=== PATIENT | male | born 1990 | race Caucasian/White ===

== ENCOUNTER 2017-12-23 12:59 | Inpatient (IN) | payer OTHER ==
[~2017-12-23] VITALS: Ht 185.4 cm; Wt 84.0 kg
--- NOTE | ~2017-12-23 | EKG ---
[place], [place] ELECTROCARDIOGRAM REPORT NAME: SHANELL TURNER III UNIT #: [id number] ROOM: 416 DOCTOR: GAYATRI DRAFT REPORT BIRTHDATE: [birth year] [facility] Test Date: 2017-12-23 Test Time: 14:19:10 Pat Name: SHANELL TURNER Department: Room: 416 Gender: M Blind Hanger: Vandana Harding : 1990 Requested By: ANDREW BENÍTEZ Order Number: [id number] Reading MD: Andres Roach MD Measurements Intervals [place] Rate: 98 P: 77 [place]: 127 QRS: 79 QRSD: 101 T: -14 QT: 339 QTc: 433 Interpretive Statements Sinus arrhythmia Borderline T abnormalities, inferior leads No previous ECG available for comparison Electronically Signed On 12-26-2017 9:33:50 PDT by Andres Roach MD CM:EKGRPT:ELECTROCARDIOGRAM REPORT [id number] ANDREW MA DRAFT REPORT ANDREW BENÍTEZ DO
[2017-12-23 12:59] VITALS: BP 148/90
[~2017-12-23 12:59] MED LIST: ATARAX,VISTARIL50 MG PO; TRAMADOL HCL50 MG PO; TRAZODONE50 MG PO; ZANTAC 150150 MG PO
[2017-12-23 14:23] LABS: HEMATOCRIT 46.3 % (42.0-52.0); HEMOGLOBIN 16.2 g/dl (14.0-18.0); MEAN CORPUSCULAR HGB 29.4 pg (27.0-31.0); MEAN PLATELET VOLUME 8.9 fl (9.6-12.3); PLATELET COUNT AUTOMATED 274 10*3/uL (130-400); RED BLOOD COUNT 5.51 10*6/uL (4.50-5.90); RED CELL DISTRI WIDTH 12.4 % (0-14.5); WHITE BLOOD COUNT 16.6 10*3/uL (4.8-10.8)
[2017-12-23 14:41] LABS: ALBUMIN 4.6 gm/dl (3.1-4.5); ALKALINE PHOSPHATASE 115 U/L (45-117); BUN 20 mg/dl (7-24); CHLORIDE 95 mmol/L (98-107); CREATININE 1.21 mg/dL (0.70-1.30); POTASSIUM 3.1 mmol/L (3.5-5.1); SGOT/AST 17 IU/L (3-35); SGPT/ALT 52 U/L (12-78); SODIUM 137 mmol/L (136-145); TOTAL PROTEIN 8.5 gm/dL (6.4-8.2)
[2017-12-23 14:42] LABS: PLATELET SUFFICIENCY NORMAL (NORMAL); TOTAL CELLS COUNTED 100 #CELLS
[2017-12-23 14:45] VITALS: BP 148/89
[2017-12-23 14:49] LABS: ETHYL ALCOHOL < 3.0 mg/dl (<3)
[2017-12-23 14:52] LABS: BILIRUBIN NEGATIVE (NEGATIVE); BLOOD NEGATIVE (NEGATIVE); CLARITY CLEAR (CLEAR); COLOR YELLOW (YELLOW); GLUCOSE NEGATIVE (NEGATIVE); KETONE TRACE (NEGATIVE); LEUKO ESTERASE NEGATIVE (NEGATIVE); NITRITE NEGATIVE (NEGATIVE); SPECIFIC GRAVITY 1.025 (1.005-1.030)
[2017-12-23 15:02] LABS: URINE AMPHETAMINES < 1000 (1000ng/ml); URINE BARBITURATES < 200 (200ng/ml); URINE BENZODIAZEPINES < 200 (200ng/ml); URINE CANNABINOIDS (THC) < 50 (50ng/ml); URINE COCAINE < 300 (300ng/ml); URINE METHADONE < 300 (300ng/ml); URINE OPIATES < 300 (300ng/ml)
[2017-12-23 15:04] LABS: URINE PHENCYCLIDINE < 25 (25ng/ml)
[2017-12-23 15:29] LABS: BACTERIA TRACE; EPITHELIAL CELLS 0-3; HYALINE CAST 20-25; MUCOUS 1+; RBC 0-2 rbc/hpf (0-2); WBC 0-2 wbc/hpf (0-5)
[2017-12-23 15:40] VITALS: BP 115/71
[2017-12-23 20:00] VITALS: BP 127/66
[2017-12-24] VITALS: BP 123/66
[2017-12-24 04:00] VITALS: BP 108/71
[2017-12-24 06:50] LABS: BASO % 0.4 % (0.0-1.0); EOS % 0.3 % (1.0-4.0); HEMATOCRIT 44.6 % (42.0-52.0); HEMOGLOBIN 15.1 g/dl (14.0-18.0); LYMPH # 2.7 10*3/uL (1.3-4.4); LYMPH % 28.3 % (27.0-41.0); MEAN CELL VOLUME 85.4 fl (80.0-94.0); MEAN CORPUSCULAR HGB 28.9 pg (27.0-31.0); MEAN CORPUSCULAR HGB CONC 33.9 g/dl (33.0-37.0); MEAN PLATELET VOLUME 9.3 fl (9.6-12.3); MONO # 1.2 10*3/uL (0.1-1.0); MONO % 12.3 % (3.0-9.0); NEUT # 5.6 10*3/uL (2.3-7.9); NEUT % 58.5 % (47.0-73.0); PLATELET COUNT AUTOMATED 246 10*3/uL (130-400); RED BLOOD COUNT 5.22 10*6/uL (4.50-5.90); RED CELL DISTRI WIDTH 12.4 % (0-14.5); WHITE BLOOD COUNT 9.6 10*3/uL (4.8-10.8)
[2017-12-24 07:20] LABS: BUN 17 mg/dl (7-24); CHLORIDE 97 mmol/L (98-107); CREATININE 0.94 mg/dL (0.70-1.30); POTASSIUM 3.2 mmol/L (3.5-5.1); SODIUM 138 mmol/L (136-145)
[2017-12-24 08:00] VITALS: BP 112/70
[2017-12-24 12:00] VITALS: BP 125/64
[2017-12-24 16:00] VITALS: BP 118/56
[2017-12-24 20:00] VITALS: BP 106/68
[2017-12-25] VITALS: BP 104/58
[2017-12-25 08:00] VITALS: BP 104/56
[2017-12-25 12:00] VITALS: BP 115/64
[2017-12-25 16:00] VITALS: BP 108/56
[2017-12-25 20:00] VITALS: BP 113/56
[2017-12-26 08:00] VITALS: BP 105/61
[2017-12-26] MEDS ORDERED: ATARAX,VISTARIL50 MG PO (11:20)
[2017-12-26] MEDS ORDERED: ZOFRAN 4 MG ED2 TAB PO (11:20)
== END 2017-12-26 14:43 | disposition home or self-care (01) | DRG 897 ==
LOC: ED 12:59 → 4E 14:09 → EDHOLD 14:09 → 4E 14:26
PROVIDERS: Emergency Medicine; Internal Medicine
DX: F11.23 Opioid dependence with withdrawal (principal); R65.10 Systemic inflammatory response syndrome (SIRS) of non-infectious origin without acute organ dysfunction; M62.82 Rhabdomyolysis; E87.6 Hypokalemia; D72.825 Bandemia; R00.0 Tachycardia, unspecified; F13.10 Sedative, hypnotic or anxiolytic abuse, uncomplicated; F12.10 Cannabis abuse, uncomplicated; F41.9 Anxiety disorder, unspecified; G25.81 Restless legs syndrome; E83.41 Hypermagnesemia; Z72.0 Tobacco use; Z71.6 Tobacco abuse counseling; Z86.19 Personal history of other infectious and parasitic diseases; Z82.49 Family history of ischemic heart disease and other diseases of the circulatory system; Z83.3 Family history of diabetes mellitus; Z84.89 Family history of other specified conditions; Z88.0 Allergy status to penicillin